=== PATIENT | female | born 1985 | race Caucasian/White ===

== ENCOUNTER 2017-11-03 08:17 | Emergency (ER) | payer SELFPAY ==
[2017-11-03] MEDS ORDERED: ONDANSETRON ODT 4 MG TAB.RAPDIS PO ONE (09:15)
[2017-11-03] MEDS ORDERED: KETOROLAC 60 MG/2 ML VIAL. IM ONE (09:15)
--- NOTE | 2017-11-03 09:24 | RAD ---
CT of the head without contrast, 11/03/2017: History: Headache The ventricles are within normal limits in size. There is no shift of the midline structures. There is no evidence of acute intracranial hemorrhage or mass effect. IMPRESSION: No acute intracranial abnormality is detected. PQRS Compliance Statement: One or more of the following individualized dose reduction techniques were utilized for this examination: 1. Automated exposure control 2. Adjustment of the mA and/or kV according to patient size 3. Use of iterative reconstruction technique
[2017-11-03] MEDS ORDERED: PROM25TA10 PO (09:49)
[2017-11-03] MEDS ORDERED: NAPR-683 PO (09:49)
--- NOTE | 2017-11-03 09:49 | PHYS DOC ---
Past History Past Medical History: Endometriosis, Other Additional Past Medical Histor: PCOS Past Surgical History: Tonsillectomy, Tubal ligation, Other Smoking: Less than 1pk/day Alcohol Use: Occasionally Drug Use: None Adult General Chief Complaint Chief Complaint: headache and neck pain [facility] 32-year-old female patient complaining of throbbing headache in top of her head dislocation 20 since yesterday that getting force today and had an episode of tunnel vision and near syncope. Patient rated her pain 6 /10 and complaining of nausea and photophobia with her pain. Patient denies focal neurodeficit, fever and chills, vomiting, . Patient didn't not take any pain medication at home. Patient states she had episodes of headache like migraine but did not have treatment for CT of head. Review of Systems Review of Systems Constitutional: Denies fever or chills [] Eyes: Denies change in visual acuity, redness, or eye pain [] HENT: Denies nasal congestion or sore throat [] Respiratory: Denies cough or shortness of breath [] Cardiovascular: No additional information not addressed in HPI [] GI: Denies abdominal pain, vomiting, bloody stools or diarrhea and reports nausea[] : Denies dysuria or hematuria [] Musculoskeletal: Denies back pain or joint pain [] Integument: Denies rash or skin lesions [] Neurologic: Reports headache, denies focal weakness or sensory changes [] Endocrine: Denies polyuria or polydipsia [] All other systems were reviewed and found to be within normal limits, except as documented in this note. Current Medications Current Medications Current Medications Medications (Trade) Dose Ordered Sig/Zay Start Time Stop Time Status Last Admin Dose Admin Ketorolac Tromethamine (Toradol) 60 mg 1X ONCE 11/03/17 09:15 11/03/17 09:16 DC 11/03/17 08:57 60 MG Ondansetron HCl (Zofran Odt) 8 mg 1X ONCE 11/03/17 09:15 11/03/17 09:16 DC 11/03/17 08:58 8 MG Allergies Allergies Allergies Coded Allergies Type Severity Reaction Last Updated Verified No Known Drug Allergies 11/03/17 No Physical Exam Physical Exam Constitutional: Well developed, well nourished, mild distress, non-toxic appearance, morbidly obese. [] HENT: Normocephalic, atraumatic, bilateral external ears normal, oropharynx moist, no oral exudates, nose normal. [] Eyes: PERRLA, EOMI, conjunctiva normal, no discharge. [] Neck: Normal range of motion, no tenderness, supple, no stridor. [] Cardiovascular:Heart rate regular rhythm, no murmur [] Lungs & Thorax: Bilateral breath sounds clear to auscultation [] Abdomen: Bowel sounds normal, soft, no tenderness, no masses, no pulsatile masses. [] Skin: Warm, dry, no erythema, no rash. [] Back: No tenderness, no CVA tenderness. [] Extremities: No tenderness, no cyanosis, no clubbing, ROM intact, no edema. [] Neurologic: Alert and oriented X 3, normal motor function, normal sensory function, no focal deficits noted. [] Psychologic: Affect normal, judgement normal, mood normal. [] Current Patient Data Vital Signs Vital Signs Date Time Temp Pulse Resp B/P (MAP) Pulse Ox O2 Delivery O2 Flow Rate FiO2 11/03/17 08:20 97.5 88 18 97 Room Air EKG EKG [] Radiology/Procedures Radiology/Procedures [] [place] [address] IMAGING REPORT Signed PATIENT: SUMIT NG ACCOUNT: [id number] : 1985 LOCATION: ER AGE: 32 SEX: F EXAM STATUS: REG ER ORD. PHYSICIAN: ANGELA KERN MD REASON: headache PROCEDURE: CT HEAD WO CONTRAST CT of the head without contrast, 11/03/2017: History: Headache The ventricles are within normal limits in size. There is no shift of the midline structures. There is no evidence of acute intracranial hemorrhage or mass effect. IMPRESSION: No acute intracranial abnormality is detected. PQRS Compliance Statement: One or more of the following individualized dose reduction techniques were utilized for this examination: 1. Automated exposure control 2. Adjustment of the mA and/or kV according to patient size 3. Use of iterative reconstruction technique DICTATED AND SIGNED BY: MEETA ORNELAS MD DATE: 11/03/17 0920 CC: ANGELA KERN MD; EILEEN YORK ~ Course & Med Decision Making Course & Med Decision Making Pertinent Imaging studies reviewed. (See chart for details) Evaluation of patient in ER showed 32-year-old female patient with complaining of headaches with radiation to make an photophobia and nausea. Patient had unremarkable physical exam. Patient did not have meningeal sign or neuro deficit. CT head was unremarkable. Patient treated with Toradol and Zofran and felt better. Plan discharge patient home with diagnosis of migraine headache. discharge: I've spoken with the patient and/or caregivers. I've explained the patient's condition, diagnosis and treatment plan based on information available to me at this time. I've answered the patient's and/or caregivers questions and addressed any concerns. The patient and/or caregivers have a good understanding the patient's diagnosis, condition and treatment plan as can be expected at this point. Vital signs have been stabilized. The patient's condition is stable for discharge from the emergency department. The patient will pursue further outpatient evaluation with her primary care provider or other designated consulting physician as outlined in the discharge instructions. Patient and/or caregivers are agreeable to this plan of care and follow-up instructions have been explained in detail. The patient and/or caregivers have received these instructions in written format and expressed understanding of these discharge instructions. The patient and her caregivers are aware that if any significant change in condition or worsening of symptoms should prompt him to immediately return to this of the closest emergency department. If an emergent department is not readily available I would encourage him to call 911. [] Dragon Disclaimer Dragon Disclaimer This electronic medical record was generated, in whole or in part, using a voice recognition dictation system. Departure Departure: Impression: Primary Impression: Migraine headache Additional Impression: Morbid obesity Disposition: 01 HOME, SELF-CARE Condition: IMPROVED Referrals: EILEEN YORK (PCP) Patient Instructions: Migraine Headache Additional Instructions: Drink plenty of liquids Follow-up with your primary care physician in 3-5 days Return to ER if not getting better Scripts Promethazine Hcl (PROMETHAZINE HCL) 25 Mg Tablet 1 TAB PO PRN Q6HRS, #20 TAB Prov: ANGELA KERN MD 11/03/17 Naproxen (NAPROSYN) 500 Mg Tablet 1 TAB PO BID, #30 TAB 1 Refill Prov: ANGELA KERN MD 11/03/17 Problem Qualifiers ANGELA KERN MD Nov 03, 2017 09:49
[2017-11-03 09:56] VITALS: BP 140/92
== END 2017-11-03 09:57 | disposition home or self-care (01) ==
LOC: ER 08:17
DX: G43.909 Migraine, unspecified, not intractable, without status migrainosus (principal); E66.01 Morbid (severe) obesity due to excess calories; E28.2 Polycystic ovarian syndrome; F17.200 Nicotine dependence, unspecified, uncomplicated
CPT/HCPCS: 70450; 96372; 99284; J1885; Q0162

== ENCOUNTER 2018-04-17 10:43 | Inpatient (IN) | payer SELFPAY ==
[~2018-04-17] VITALS: Ht 177.8 cm; Wt 197.5 kg
[~2018-04-17 10:43] MED LIST: NAPR-683 PO; PROM25TA10 PO
--- NOTE | 2018-04-17 11:44 | PHYS DOC ---
Past History Past Medical History: Endometriosis, Other Additional Past Medical Histor: PCOS Past Surgical History: Tonsillectomy, Tubal ligation, Other Smoking: Less than 1pk/day Alcohol Use: Occasionally Drug Use: None Adult General Chief Complaint Chief Complaint: CHEST WALL PAIN HPI HPI Patient is a 33 year old female who presents with complaint of left-sided chest pain. Patient states that she awoke with symptoms this morning of pain in her left shoulder. Patient states she developed sudden left sided pressure pain in her chest that radiated up towards her neck and jaw. Patient denies history of similar symptoms. Patient states she had associated dizziness and nausea with symptoms. Patient denies any known cardiac history but states that she does have family history of heart disease in her father. Patient has not taking medications for her symptoms. Patient rates her pain currently as 6 out of 10. Patient states that she has used tobacco in the past but denies any history of regular smoking. Denies vomiting, abdominal pain, or vision changes. Review of Systems Review of Systems Constitutional: Denies fever or chills [] Eyes: Denies change in visual acuity, redness, or eye pain [] HENT: Denies nasal congestion or sore throat [] Respiratory: Denies cough or shortness of breath [] Cardiovascular: Chest pain[] GI: Nausea, denies abdominal pain, vomiting, bloody stools or diarrhea [] : Denies dysuria or hematuria [] Musculoskeletal: Denies back pain or joint pain [] Integument: Denies rash or skin lesions [] Neurologic: Dizziness, denies focal weakness or sensory changes [] All other systems were reviewed and found to be within normal limits, except as documented in this note. Current Medications Current Medications Current Medications Medications (Trade) Dose Ordered Sig/Zay Start Time Stop Time Status Last Admin Dose Admin Aspirin (Children'S Aspirin) 324 mg 1X ONCE 04/17/18 11:45 04/17/18 11:46 UNV Fentanyl Citrate (Fentanyl 2ml Vial) 50 mcg PRN Q15MIN PRN 04/17/18 11:45 04/18/18 11:44 UNV Ondansetron HCl (Zofran) 4 mg 1X ONCE 04/17/18 11:45 04/17/18 11:46 UNV Sodium Chloride 1,000 ml @ 1,000 mls/hr Q1H 04/17/18 11:37 04/17/18 12:36 UNV Allergies Allergies Allergies Coded Allergies Type Severity Reaction Last Updated Verified No Known Drug Allergies 11/03/17 No Physical Exam Physical Exam Constitutional: Alert, afebrile, appears in moderate discomfort. [] HENT: Normocephalic, atraumatic, bilateral external ears normal, oropharynx moist, no oral exudates, nose normal. [] Eyes: PERRLA, EOMI, conjunctiva normal, no discharge. [] Neck: Normal range of motion, no tenderness, supple, no stridor. [] Cardiovascular:Heart rate regular rhythm, no murmur [] Lungs & Thorax: Bilateral breath sounds clear to auscultation [] Abdomen: Bowel sounds normal, soft, no tenderness, no masses, no pulsatile masses. [] Skin: Warm, dry, no erythema, no rash. [] Back: No tenderness, no CVA tenderness. [] Extremities: No tenderness, no cyanosis, no clubbing, ROM intact, no edema. [] Neurologic: Alert and oriented X 3, normal motor function, normal sensory function, no focal deficits noted. [] Current Patient Data Vital Signs Vital Signs Date Time Temp Pulse Resp B/P (MAP) Pulse Ox O2 Delivery O2 Flow Rate FiO2 04/17/18 11:02 97.8 82 26 98 Room Air Lab Results Laboratory Tests Test 04/17/18 11:20 White Blood Count 8.4 x10^3/uL Red Blood Count 4.61 x10^6/uL Hemoglobin 13.0 g/dL Hematocrit 38.8 % Mean Corpuscular Volume 84 fL Mean Corpuscular Hemoglobin 28 pg Mean Corpuscular Hemoglobin Concent 33 g/dL Red Cell Distribution Width 12.8 % Platelet Count 296 x10^3/uL Neutrophils (%) (Auto) 72 % Lymphocytes (%) (Auto) 23 % Monocytes (%) (Auto) 3 % Eosinophils (%) (Auto) 1 % Basophils (%) (Auto) 1 % Neutrophils # (Auto) 6.1 x10^3uL Lymphocytes # (Auto) 2.0 x10^3/uL Monocytes # (Auto) 0.2 x10^3/uL Eosinophils # (Auto) 0.1 x10^3/uL Basophils # (Auto) 0.1 x10^3/uL D-Dimer (Sherri) 0.49 mg/L Sodium Level 137 mmol/L Potassium Level 4.1 mmol/L Chloride Level 103 mmol/L Carbon Dioxide Level 28 mmol/L Anion Gap 6 Blood Urea Nitrogen 9 mg/dL Creatinine 0.7 mg/dL Estimated GFR (Cockcroft-Gault) 97.0 BUN/Creatinine Ratio 13 Glucose Level 116 mg/dL Calcium Level 8.7 mg/dL Magnesium Level 1.9 mg/dL Total Bilirubin 0.3 mg/dL Aspartate Amino Transf (AST/SGOT) 15 U/L Alanine Aminotransferase (ALT/SGPT) 25 U/L Alkaline Phosphatase 67 U/L Creatine Kinase 56 U/L Creatine Kinase MB (Mass) < 0.5 ng/mL Creatine Kinase MB Relative Index 0.9 % Troponin I Quantitative < 0.017 ng/mL [id number]-Type Natriuretic Peptide 157 pg/mL Total Protein 7.5 g/dL Albumin 3.1 g/dL Albumin/Globulin Ratio 0.7 Current Medications Medications (Trade) Dose Ordered Sig/Zay Route PRN Reason Start Time Stop Time Status Last Admin Dose Admin Aspirin (Children'S Aspirin) 324 mg 1X ONCE PO 04/17/18 11:45 04/17/18 11:49 DC 04/17/18 12:03 Fentanyl Citrate (Fentanyl 2ml Vial) 50 mcg PRN Q15MIN PRN IV PAIN GREATER THAN 3/10 04/17/18 11:45 04/18/18 11:44 04/17/18 12:02 Sodium Chloride 1,000 ml @ 1,000 mls/hr Q1H IV 04/17/18 11:45 04/17/18 12:44 04/17/18 12:03 Ondansetron HCl (Zofran) 4 mg 1X ONCE IV 04/17/18 11:45 04/17/18 11:49 DC 04/17/18 12:03 EKG EKG Interpreted by me: Heart rate 75, sinus rhythm, normal axis, nonspecific T-wave inversions in lead aVL and V2, no acute ST elevations or depressions[] Radiology/Procedures Radiology/Procedures [address] [address] IMAGING REPORT Signed PATIENT: SUMIT NG ACCOUNT: [id number] : 1985 LOCATION: ER AGE: 33 SEX: F EXAM STATUS: REG ER ORD. PHYSICIAN: TITUS WARE MD REASON: chest pain PROCEDURE: PORTABLE CHEST 1V PORTABLE CHEST 1V Clinical Indication: chest pain Comparison: Two-view chest March 01, 2016. Findings: Exam is limited due to portable technique. There is inadequate penetration. Apical lordotic positioning. The cardiomediastinal silhouette is normal. No obvious opacity in the lungs. There is no pneumothorax. No obvious pleural effusion is appreciated. Nondiagnostic evaluation of the bones. IMPRESSION: Limited study due to body habitus and portable technique. No obvious opacity in the lungs. Electronically signed by: Zenon Matthews MD (04/17/2018 12:03 PM) [id number] DICTATED AND SIGNED BY: ZENON MATTHEWS MD DATE: 04/17/18 1201 CC: TITUS WARE MD; EILEEN YORK ~ [] Course & Med Decision Making Course & Med Decision Making Pertinent Labs and Imaging studies reviewed. (See chart for details) Patient's troponin level is negative. HEART score is 3. The patient is in low risk category for major acute cardiac event, the patient continues to be in significant discomfort despite treatment with aspirin and fentanyl. Given the nature of patient's symptoms, we will admit the patient for rule out of acute myocardial infarction. I spoke with Dr. Benitez who accepted care of patient in hospital. A consult was placed to Dr. Stephen of cardiology to follow patient in hospital. Dragon Disclaimer Dragon Disclaimer This electronic medical record was generated, in whole or in part, using a voice recognition dictation system. Departure Departure: Impression: Primary Impression: Chest pain Additional Impression: Morbid obesity Disposition: 09 ADMITTED INPATIENT Admitting Physician: Carloz Benitez Condition: STABLE Referrals: EILEEN YORK (PCP) Problem Qualifiers Primary Impression: Chest pain Chest pain type: unspecified Qualified Codes: R07.9 - Chest pain, unspecified TITUS WARE MD Apr 17, 2018 11:44
[2018-04-17] MEDS ORDERED: ONDANSETRON PF 4 MG/2 ML VIAL. IV ONE (11:45)
[2018-04-17] MEDS ORDERED: ASPIRIN 81 MG TAB.CHEW PO ONE (11:45)
[2018-04-17 11:51] LABS: BASO # 0.1 x10^3/uL (0.0-0.2); BASO % 1 % (0-3); EOS # 0.1 x10^3/uL (0.0-0.7); EOS % 1 % (0-3); HEMATOCRIT 38.8 % (36.0-47.0); LYMPH % 23 % (24-48); MEAN CORPUSCULAR HEMOGLOBIN 28 pg (25-35); MEAN CORPUSCULAR HGB CONC 33 g/dL (31-37); MEAN CORPUSCULAR VOLUME 84 fL (79-100); MONO # 0.2 x10^3/uL (0.0-1.1); MONO % 3 % (0-9); NEUT # 6.1 x10^3uL (1.8-7.7); NEUT % 72 % (31-73); PLATELET COUNT 296 x10^3/uL (140-400); RED BLOOD COUNT 4.61 x10^6/uL (3.50-5.40); RED CELL DISTRIBUTION WIDTH 12.8 % (11.5-14.5); WHITE BLOOD COUNT 8.4 x10^3/uL (4.0-11.0)
[2018-04-17] MEDS: IV NORMAL SALINE 1,000ML 1,000 ML IV SCH ×4 (12:02→21:41)
--- NOTE | 2018-04-17 12:07 | RAD ---
PORTABLE CHEST 1V Clinical Indication: chest pain Comparison: Two-view chest March 01, 2016. Findings: Exam is limited due to portable technique. There is inadequate penetration. Apical lordotic positioning. The cardiomediastinal silhouette is normal. No obvious opacity in the lungs. There is no pneumothorax. No obvious pleural effusion is appreciated. Nondiagnostic evaluation of the bones. IMPRESSION: Limited study due to body habitus and portable technique. No obvious opacity in the lungs. Electronically signed by: Zenon Matthews MD (04/17/2018 12:03 PM) [id number]
[2018-04-17 12:19] LABS: ALBUMIN 3.1 g/dL (3.4-5.0); ALBUMIN/GLOBULIN RATIO 0.7 (1.0-1.7); ALK PHOS 67 U/L (46-116); ALT (SGPT) 25 U/L (14-59); ANION GAP 6 (6-14); AST (SGOT) 15 U/L (15-37); BLOOD UREA NITROGEN 9 mg/dL (7-20); BUN/CREATININE RATIO 13 (6-20); CALCIUM 8.7 mg/dL (8.5-10.1); CARBON DIOXIDE 28 mmol/L (21-32); CHLORIDE 103 mmol/L (98-107); CREATININE 0.7 mg/dL (0.6-1.0); GLUCOSE 116 mg/dL (70-99); MAGNESIUM 1.9 mg/dL (1.8-2.4); POTASSIUM 4.1 mmol/L (3.5-5.1); SODIUM 137 mmol/L (136-145); TOTAL BILIRUBIN 0.3 mg/dL (0.2-1.0); TOTAL PROTEIN 7.5 g/dL (6.4-8.2)
[2018-04-17] MEDS ORDERED: ONDANSETRON PF 4 MG/2 ML VIAL. IV PRN (12:45)
[2018-04-17 13:50] LABS: BACTERIA,URINE FEW /HPF (0-FEW); BILIRUBIN,URINE NEG (NEG); CLARITY,URINE CLEAR; COLOR,URINE YELLOW; GLUCOSE,URINE NEG (NEG); NITRITE,URINE NEG (NEG); RBC,URINE OCC /HPF (0-2); SQUAMOUS EPITHELIAL CELL,UR FEW /LPF; UROBILINOGEN,URINE 0.2 mg/dL (0.2 mg/dL)
[2018-04-17 14:10] VITALS: BP 161/85
[2018-04-17] MEDS ORDERED: PREN1TAB PO (15:30)
[2018-04-17] MEDS ORDERED: NORG1TAB6 PO (15:30)
[2018-04-17] MEDS ORDERED: LORA10TA3 PO (15:30)
--- NOTE | 2018-04-17 15:51 | NUR ---
The patient, SUMIT NG, 33 y/o, F admitted by TOMÁS BROWNING MD, was given written information regarding hospital policies, unit procedures and contact persons. Patient admitted to room 117 from the ED and arrived at approx. 1415 via EMS. Patient accompanied by family on admission. Valuables were checked and left in room with patient. Vital signs assessed and patient given a box lunch.
--- NOTE | 2018-04-17 16:40 | PDOC2 ---
CONSULT Date of Admission DATE: 04/17/18 TIME: 16:38 Reason for Consult: cp Problem List Problems Medical Problems: (1) Chest pain Status: Acute (2) Morbid obesity Status: Acute History of Present Illness Ms Guadalupe is a 33 year old female who presents with complaints of chest pain which she woke with this am. She reports left shoulder pain that radiated up her neck into her face and chest tightness. She reports increase with exertion. She reports some associated dyspnea, lightheadedness, diaphoresis and a "foggy feeling" in her head. She does no regular exercise but reports ability to walk one flight of stairs without significant symptoms. She reports edema in her legs intermittently which is worse at the end of the day. She complains of heaviness and pain in her legs when swollen and associated shortness of breath. She reports occasional palpitations that feel like a fluttering in her chest. Past Medical History PCOS, endometriosis, ADD Past Surgical History Right fallopian tube removed. 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 Current Medications Current Medications Aspirin (Children'S Aspirin) 324 mg 1X ONCE PO Last administered on 04/17/18at 12:03; Start 04/17/18 at 11:45; Stop 04/17/18 at 11:49; Status DC Fentanyl Citrate (Fentanyl 2ml Vial) 50 mcg PRN Q15MIN PRN IV PAIN GREATER THAN 3/10 Last administered on 04/17/18at 12:02; Start 04/17/18 at 11:45; Stop at 11:44 Sodium Chloride 1,000 ml @ 1,000 mls/hr Q1H IV Last administered on 04/17/18at 12:03; Start 04/17/18 at 11:45; Stop 04/17/18 at 12:44; Status DC Ondansetron HCl (Zofran) 4 mg 1X ONCE IV Last administered on 04/17/18at 12:03 ; Start 04/17/18 at 11:45; Stop 04/17/18 at 11:49; Status DC Ondansetron HCl (Zofran) 4 mg PRN Q4HRS PRN IV NAUSEA/VOMITING; Start 04/17/18 at 12:45; Stop 04/18/18 at 12:44 Fentanyl Citrate (Fentanyl 2ml Vial) 50 mcg PRN Q2HR PRN IV PAIN; Start at 12:45; Stop 04/18/18 at 12:44 Sodium Chloride 1,000 ml @ 100 mls/hr Q10H IV ; Start 04/17/18 at 12:45; Stop 04/18/18 at 12:44 Active Scripts Active Reported Sprintec (Norgestimate-Ethinyl Estradiol) 1 Each Tablet 1 Tab PO DAILY Vitamins ( Vit W-Ca,Fe,FA(<1 mg)) 1 Each Tablet 1 Each PO DAILY Loratadine 10 Mg Tablet 1 Tab PO DAILY Allergies: Coded Allergies: No Known Drug Allergies (Unverified , 11/03/17) Review of System as per HPI General: Alert, Oriented X3, Cooperative, No acute distress Lungs: Clear to auscultation, Normal air movement Heart: Regular rate, Normal S1, Normal S2, Other (+ murmur 2/6) Abdomen: Normal bowel sounds, Soft, No tenderness, Other (obese) Extremities: No cyanosis, Normal pulses, Other (1+ edema) Neuro: Normal speech, Strength at 5/5 X4 ext Psych/Mental Status: Mental status NL, Mood NL VITALS Vital Signs Date Time Temp Pulse Resp B/P (MAP) Pulse Ox O2 Delivery O2 Flow Rate FiO2 04/17/18 15:53 Room Air 04/17/18 14:10 98.4 85 18 161/85 (110) 95 Labs Laboratory Tests Test 04/17/18 11:20 04/17/18 12:10 04/17/18 15:45 White Blood Count 8.4 x10^3/uL (4.0-11.0) Red Blood Count 4.61 x10^6/uL (3.50-5.40) Hemoglobin 13.0 g/dL (12.0-15.5) Hematocrit 38.8 % (36.0-47.0) Mean Corpuscular Volume 84 fL (79-100) Mean Corpuscular Hemoglobin 28 pg (25-35) Mean Corpuscular Hemoglobin Concent 33 g/dL (31-37) Red Cell Distribution Width 12.8 % (11.5-14.5) Platelet Count 296 x10^3/uL (140-400) Neutrophils (%) (Auto) 72 % (31-73) Lymphocytes (%) (Auto) 23 % (24-48) Monocytes (%) (Auto) 3 % (0-9) Eosinophils (%) (Auto) 1 % (0-3) Basophils (%) (Auto) 1 % (0-3) Neutrophils # (Auto) 6.1 x10^3uL (1.8-7.7) Lymphocytes # (Auto) 2.0 x10^3/uL (1.0-4.8) Monocytes # (Auto) 0.2 x10^3/uL (0.0-1.1) Eosinophils # (Auto) 0.1 x10^3/uL (0.0-0.7) Basophils # (Auto) 0.1 x10^3/uL (0.0-0.2) D-Dimer (Sherri) 0.49 mg/L (0.00-0.50) Sodium Level 137 mmol/L (136-145) Potassium Level 4.1 mmol/L (3.5-5.1) Chloride Level 103 mmol/L (98-107) Carbon Dioxide Level 28 mmol/L (21-32) Anion Gap 6 (6-14) Blood Urea Nitrogen 9 mg/dL (7-20) Creatinine 0.7 mg/dL (0.6-1.0) Estimated GFR (Cockcroft-Gault) 97.0 BUN/Creatinine Ratio 13 (6-20) Glucose Level 116 mg/dL (70-99) Calcium Level 8.7 mg/dL (8.5-10.1) Magnesium Level 1.9 mg/dL (1.8-2.4) Total Bilirubin 0.3 mg/dL (0.2-1.0) Aspartate Amino Transf (AST/SGOT) 15 U/L (15-37) Alanine Aminotransferase (ALT/SGPT) 25 U/L (14-59) Alkaline Phosphatase 67 U/L (46-116) Creatine Kinase 56 U/L (26-192) Creatine Kinase MB (Mass) < 0.5 ng/mL (0.0-3.6) Creatine Kinase MB Relative Index 0.9 % (0-4) Troponin I Quantitative < 0.017 ng/mL (0-0.055) < 0.017 ng/mL (0-0.055) PT-Oxh-H-Type Natriuretic Peptide 157 pg/mL (0-124) Total Protein 7.5 g/dL (6.4-8.2) Albumin 3.1 g/dL (3.4-5.0) Albumin/Globulin Ratio 0.7 (1.0-1.7) Urine Collection Type Unknown Urine Color Yellow Urine Clarity Clear Urine pH 7.5 Urine Specific Sayre 1.015 Urine Protein Neg (NEG-TRACE) Urine Glucose (UA) Neg mg/dL (NEG) Urine Ketones (Stick) Neg mg/dL (NEG) Urine Blood Neg (NEG) Urine Nitrite Neg (NEG) Urine Bilirubin Neg (NEG) Urine Urobilinogen Dipstick 0.2 mg/dL (0.2 mg/dL) Urine Leukocyte Esterase Small (NEG) Urine RBC Occ /HPF (0-2) Urine WBC 5-10 /HPF (0-4) Urine Squamous Epithelial Cells Few /LPF Urine Bacteria Few /HPF (0-FEW) Images EKG - sinus rhythm, non specific st/t abn Assessment/Plan 1. Chest pain - mixed features. CE negative x1. No acute ischemia on EKG. 2. dyspnea on exertion - No overt heart failure. 3. hypertension - reportedly labile 4. unk lipid status 5. palpitations Will start aspirin, low dose BB, check echo. Plan for outpatient MCT for frequent palpitations. If no significant abnormalities, consider outpatient stress testing. CHLOÉ GRIER APRN Apr 17, 2018 16:40
--- NOTE | 2018-04-17 18:11 | NUR ---
Nursing Note: Normal Saline non-administered d/t previous bag from ED still running.
[2018-04-17 19:57] VITALS: BP 138/81
--- NOTE | 2018-04-17 20:50 | NUR ---
spoke with DR. Benitez regarding pt continuing home med loratadine. okay to reorder.
[2018-04-17] MEDS ORDERED: METOPROLOL TART IMMED RELEASE 25 MG TABLET PO SCH (21:00)
[2018-04-17 21:22] VITALS: BP 126/83
[2018-04-17] MEDS: METOPROLOL TART IMMED RELEASE 25 MG TABLET PO SCH (21:44)
[2018-04-17] MEDS ORDERED: CETIRIZINE HCL 10 MG TABLET PO SCH (21:45)
[2018-04-17 23:09] VITALS: BP 148/89
[2018-04-18] MEDS: ACETAMINOPHEN 325 MG TABLET PO PRN ×2 (01:01→08:14)
[2018-04-18 05:12] VITALS: BP 131/83
--- NOTE | 2018-04-18 06:29 | EKG ---
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
[2018-04-18 06:47] LABS: BASO # 0.1 x10^3/uL (0.0-0.2); BASO % 1 % (0-3); EOS # 0.1 x10^3/uL (0.0-0.7); EOS % 1 % (0-3); HEMATOCRIT 34.9 % (36.0-47.0); HEMOGLOBIN 11.7 g/dL (12.0-15.5); LYMPH # 2.9 x10^3/uL (1.0-4.8); LYMPH % 35 % (24-48); MEAN CORPUSCULAR HEMOGLOBIN 28 pg (25-35); MEAN CORPUSCULAR HGB CONC 34 g/dL (31-37); MEAN CORPUSCULAR VOLUME 84 fL (79-100); MONO # 0.3 x10^3/uL (0.0-1.1); MONO % 4 % (0-9); NEUT # 4.9 x10^3uL (1.8-7.7); NEUT % 59 % (31-73); PLATELET COUNT 281 x10^3/uL (140-400); RED BLOOD COUNT 4.14 x10^6/uL (3.50-5.40); RED CELL DISTRIBUTION WIDTH 13.1 % (11.5-14.5); WHITE BLOOD COUNT 8.3 x10^3/uL (4.0-11.0)
[2018-04-18 06:56] LABS: CALCIUM 8.2 mg/dL (8.5-10.1); CREATININE 0.6 mg/dL (0.6-1.0); GFR 115.9; POTASSIUM 4.2 mmol/L (3.5-5.1)
[2018-04-18] MEDS ORDERED: ASPIRIN ENTERIC COATED 81 MG TABLET.DR. PO SCH (08:00)
[2018-04-18] MEDS: METOPROLOL TART IMMED RELEASE 25 MG TABLET PO SCH (08:14)
[2018-04-18] MEDS: IV NORMAL SALINE 1,000ML 1,000 ML IV SCH (08:45)
[2018-04-18 12:15] VITALS: BP 131/82
--- NOTE | 2018-04-18 12:41 | HP ---
ADMIT DATE: 04/18/2018 HISTORY OF PRESENT ILLNESS: The patient is a 33-year-old female patient, who came to the Emergency Room with a complaint of chest pain, which woke her up yesterday morning. She reports left shoulder pain that radiates up to her neck and to her face and chest tightness. She also reports that it has increased with exertion. The pain was associated with dyspnea, lightheadedness, diaphoresis and a foggy feeling in her head. She does no regular exercise, but reports ability to walk 1 flight of stairs without any significant symptoms. She reports also that she has swelling of her legs intermittently, which is worse at the end of the day. She also complained of heaviness and pain in her legs and swollen and reported occasional palpitation that is like fluttering in her chest. She was extensively investigated in the Emergency Room. Her first set of cardiac enzyme was less than 0.017. She was admitted to do 2 more sets of cardiac enzyme and to consult the cardiology team. PAST MEDICAL HISTORY: Significant for polycystic ovary syndrome and endometriosis. She also has attention deficit hyperactivity disorder. PAST SURGICAL HISTORY: Significant for right total salpingectomy for ectopic . She has also tonsillectomy and adenoidectomy. FAMILY HISTORY: Sudden cardiac in her father at age of 50. Multiple family members with various inflammatory disease. Her sister has Sjogren's syndrome. Her mother has COPD. SOCIAL HISTORY: She lives with her common-law , has no children of her own; however, she has 6 children. She does not smoke, drink alcohol or use recreational drugs. 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 REVIEW OF SYSTEMS: The patient denied any blurring of vision, cataract, glaucoma or macular degeneration. Denied any earache, tinnitus or sensorineural deafness. Denied any nosebleeds, stuffy nose or postnasal drip. Denied any sore throat, sore tongue, toothache, hoarseness of voice or difficulty swallowing. Denied any nausea, vomiting, diarrhea or constipation. Denied any hematemesis, melena or hematochezia. Denied any dysuria, frequency or hematuria. She did complain of chest pain, shortness of breath and dizziness, but no vertigo. PHYSICAL EXAMINATION: GENERAL: On arrival to the Emergency Room, she looked well and was clearly in no apparent respiratory distress. There was no pallor, jaundice or cyanosis. No lymphadenopathy, no thyromegaly, no jugular distension. No lower limb edema. VITAL SIGNS: Her heart rate was 84, blood pressure was 158/88, temperature was 97.8, respiratory rate was 22 and oxygen saturation was 99%. HEAD, EYES, EARS, NOSE AND THROAT: Showed normocephalic, atraumatic. NECK: Supple. HEART: Showed normal first and second heart sounds. No gallop, rub or murmur. CHEST: Clear to auscultation. No crepitation or rhonchi. ABDOMEN: Distended, soft, nontender. NEUROLOGIC: She is awake, alert, responding appropriately. All cranial nerves intact. EXTREMITIES: She moves extremities without difficulty. She ambulates without assistance or assistive devices. LABORATORY DATA: On arrival to the Emergency Room, her lab work showed a serum sodium 137, potassium 4.1, chloride 103, bicarbonate 28, anion gap of 6, BUN 9, creatinine 0.7, estimated GFR was 97 mL per minute. Her glucose 116, calcium was 8.7, magnesium was 1.9. Total bilirubin, AST, ALT, alkaline phosphatase were normal. Her total protein was 7.5, albumin 3.1. Her first set of cardiac enzymes showed troponin to be less than 0.017. Her white cell count was 8400, hemoglobin 13, hematocrit 39, MCV 84 and platelet count 296,000 with normal manual differential. Her D-dimer was 0.49. Urinalysis was essentially unremarkable. Her chest x-ray showed that there is inadequate penetration; however, apical lordotic positioning. The cardiomediastinal silhouette is normal. No obvious opacity in the lungs. There is no pneumothorax, no obvious pleural effusion is appreciated, nondiagnostic evaluation of the bones. PLAN: The patient was admitted. We will do 2 more sets of cardiac enzyme. Consult the Cardiology team and decide the further management accordingly. TOMÁS BROWNING MD DR: KOBE/herb JOB#: [id number] / [id number]
[2018-04-18] MEDS ORDERED: KETOROLAC 30 MG/ML VIAL. IV ONE (12:45)
--- NOTE | 2018-04-18 14:10 | CARD ---
MR#: [id number] Date of Study: 04/18/2018 Ordering Physician: CHLOÉ GRIER, Referring Physician: TOMÁS BROWNING Tech: Arleth Boston RDCS APPROVED REPORT EXAM: Two-dimensional and M-mode echocardiogram with Doppler and color Doppler. Other Information Quality : Fair INDICATION Chest Pain RISK FACTORS Obesity 2D DIMENSIONS RVDd3.2 (2.9-3.5cm)Left Atrium(2D)3.8 (1.6-4.0cm) IVSd1.0 (0.7-1.1cm)Aortic Root(2D)2.8 (2.0-3.7cm) LVDd5.7 (3.9-5.9cm)LVOT Diameter2.3 (1.8-2.4cm) PWd1.1 (0.7-1.1cm)LVDs3.9 (2.5-4.0cm) FS (%) 32.2 %SV96.4 ml Aortic Valve AoV Peak Obi.169.0cm/sAoV VTI31.6cm AO Peak GR.11.4mmHgLVOT Peak Obi.125.6cm/s LVOT VTI 24.96cmAO Mean GR.6mmHg CLARE (VMAX)3.45se0TMF (VTI)3.19cm2 Mitral Valve MV E Cdbxdeik95.5cm/sMV DECEL HHGY336xe MV A Nlbjtxps97.1cm/sE/A Ratio1.3 Tricuspid Valve TR P. Ccgzmctf569wv/sRAP DRMZHOFH9dhXi TR Peak Gr.57izNiPNBY60mvLw Pulmonary Vein S1 Ygdrqkza47.5cm/sD2 Qaxhsmhf50.6cm/s LEFT VENTRICLE The left ventricle is normal size. There is normal left ventricular wall thickness. The left ventricu lar systolic function is normal and the ejection fraction is within normal range. The Ejection Fracti on is 55-60%. There is normal LV segmental wall motion. The left ventricular diastolic function and f illing is normal for age. RIGHT VENTRICLE The right ventricle is normal size. The right ventricular systolic function is normal. ATRIA The left atrium size is normal. The right atrium size is normal. The interatrial septum is intact wit h no evidence for an atrial septal defect or patent foramen ovale as noted on 2-D or Doppler imaging. AORTIC VALVE The aortic valve is not well visualized. Doppler and Color Flow revealed no significant aortic regurg itation. There is no significant aortic valvular stenosis. MITRAL VALVE The mitral valve is normal in structure and function. There is no evidence of mitral valve prolapse. There is no mitral valve stenosis. Doppler and Color-flow revealed trace to mild mitral regurgitation . TRICUSPID VALVE The tricuspid valve is normal in structure and function. Doppler and Color Flow revealed mild tricusp id regurgitation. The PA pressure was estimated at 40 mmHg. There is no tricuspid valve stenosis. PULMONIC VALVE The pulmonic valve is not well visualized. Doppler and Color Flow revealed no pulmonic valvular regur gitation. There is no pulmonic valvular stenosis. GREAT VESSELS The aortic root is normal in size. The ascending aorta is normal in size. The IVC is normal in size a nd collapses >50% with inspiration. PERICARDIAL EFFUSION There is no evidence of significant pericardial effusion. Critical Notification Critical Value: No <Conclusion> The left ventricle is normal size. The left ventricular systolic function is normal and the ejection fraction is within normal range. The Ejection Fraction is 55-60%. There is no significant aortic valvular stenosis. Doppler and Color Flow revealed no significant aortic regurgitation. Doppler and Color-flow revealed trace to mild mitral regurgitation. Doppler and Color Flow revealed mild tricuspid regurgitation. The PA pressure was estimated at 40 mmHg. There is no evidence of significant pericardial effusion. Signed by : Gene Sofia MD Electronically Approved : 04/18/2018 14:09:39
--- NOTE | 2018-04-18 14:20 | NUR ---
Pt discharged from hospital, instructions provided to the pt. Iv discontinued. Pt off unit accompanied by family memebers.
--- NOTE | 2018-04-18 15:30 | PDOC ---
SUBJECTIVE: Patient seen and examined She is feeling better today. OBJECTIVE: Problems: Problems Medical Problems: (1) Chest pain Status: Acute (2) Morbid obesity Status: Acute Chest pain. No evidence of acute infarction. Patient is significantly better symptomatically. Echocardiogram shows normal left ventricular size and systolic function. The patient may be discharged on present treatments. We'll contact the patient for follow-up and further testing. Morbid obesity. Patient is hopefully started a diet and exercise program postdischarge. Hypertension. Patient's blood pressures under improved control. Vital Signs: Vital Signs Date Time Temp Pulse Resp B/P (MAP) Pulse Ox O2 Delivery O2 Flow Rate FiO2 04/18/18 12:15 98.4 83 20 131/82 (98) 94 04/18/18 05:12 Room Air I & O Intake and Output 04/18/18 07:00 Intake Total 3067.72 ml Balance 3067.72 ml Intake Oral 960 ml IV Total 1867.72 ml Tube Feeding 240 ml # Voids 5 Labs: Laboratory Tests Test 04/17/18 11:20 04/17/18 12:10 04/17/18 15:45 04/17/18 19:00 White Blood Count 8.4 x10^3/uL (4.0-11.0) Red Blood Count 4.61 x10^6/uL (3.50-5.40) Hemoglobin 13.0 g/dL (12.0-15.5) Hematocrit 38.8 % (36.0-47.0) Mean Corpuscular Volume 84 fL (79-100) Mean Corpuscular Hemoglobin 28 pg (25-35) Mean Corpuscular Hemoglobin Concent 33 g/dL (31-37) Red Cell Distribution Width 12.8 % (11.5-14.5) Platelet Count 296 x10^3/uL (140-400) Neutrophils (%) (Auto) 72 % (31-73) Lymphocytes (%) (Auto) 23 % (24-48) Monocytes (%) (Auto) 3 % (0-9) Eosinophils (%) (Auto) 1 % (0-3) Basophils (%) (Auto) 1 % (0-3) Neutrophils # (Auto) 6.1 x10^3uL (1.8-7.7) Lymphocytes # (Auto) 2.0 x10^3/uL (1.0-4.8) Monocytes # (Auto) 0.2 x10^3/uL (0.0-1.1) Eosinophils # (Auto) 0.1 x10^3/uL (0.0-0.7) Basophils # (Auto) 0.1 x10^3/uL (0.0-0.2) D-Dimer (Sherri) 0.49 mg/L (0.00-0.50) Sodium Level 137 mmol/L (136-145) Potassium Level 4.1 mmol/L (3.5-5.1) Chloride Level 103 mmol/L (98-107) Carbon Dioxide Level 28 mmol/L (21-32) Anion Gap 6 (6-14) Blood Urea Nitrogen 9 mg/dL (7-20) Creatinine 0.7 mg/dL (0.6-1.0) Estimated GFR (Cockcroft-Gault) 97.0 BUN/Creatinine Ratio 13 (6-20) Glucose Level 116 mg/dL (70-99) Calcium Level 8.7 mg/dL (8.5-10.1) Magnesium Level 1.9 mg/dL (1.8-2.4) Total Bilirubin 0.3 mg/dL (0.2-1.0) Aspartate Amino Transf (AST/SGOT) 15 U/L (15-37) Alanine Aminotransferase (ALT/SGPT) 25 U/L (14-59) Alkaline Phosphatase 67 U/L (46-116) Creatine Kinase 56 U/L (26-192) Creatine Kinase MB (Mass) < 0.5 ng/mL (0.0-3.6) Creatine Kinase MB Relative Index 0.9 % (0-4) Troponin I Quantitative < 0.017 ng/mL (0-0.055) < 0.017 ng/mL (0-0.055) < 0.017 ng/mL (0-0.055) GS-Oqb-N-Type Natriuretic Peptide 157 pg/mL (0-124) Total Protein 7.5 g/dL (6.4-8.2) Albumin 3.1 g/dL (3.4-5.0) Albumin/Globulin Ratio 0.7 (1.0-1.7) Urine Collection Type Unknown Urine Color Yellow Urine Clarity Clear Urine pH 7.5 Urine Specific Thor 1.015 Urine Protein Neg (NEG-TRACE) Urine Glucose (UA) Neg mg/dL (NEG) Urine Ketones (Stick) Neg mg/dL (NEG) Urine Blood Neg (NEG) Urine Nitrite Neg (NEG) Urine Bilirubin Neg (NEG) Urine Urobilinogen Dipstick 0.2 mg/dL (0.2 mg/dL) Urine Leukocyte Esterase Small (NEG) Urine RBC Occ /HPF (0-2) Urine WBC 5-10 /HPF (0-4) Urine Squamous Epithelial Cells Few /LPF Urine Bacteria Few /HPF (0-FEW) Maternal Serum HCG Beta Subunit < 1 mIU/mL (0-6) Triglycerides Level 161 mg/dL (0-150) Cholesterol Level 209 mg/dL (0-200) LDL Cholesterol, Calculated 128 mg/dL (0-100) VLDL Cholesterol, Calculated 32 mg/dL (0-40) Non-HDL Cholesterol Calculated 160 mg/dL (0-129) HDL Cholesterol 49 mg/dL (40-60) Cholesterol/HDL Ratio 4.0 Test 04/18/18 06:34 White Blood Count 8.3 x10^3/uL (4.0-11.0) Red Blood Count 4.14 x10^6/uL (3.50-5.40) Hemoglobin 11.7 g/dL (12.0-15.5) Hematocrit 34.9 % (36.0-47.0) Mean Corpuscular Volume 84 fL (79-100) Mean Corpuscular Hemoglobin 28 pg (25-35) Mean Corpuscular Hemoglobin Concent 34 g/dL (31-37) Red Cell Distribution Width 13.1 % (11.5-14.5) Platelet Count 281 x10^3/uL (140-400) Neutrophils (%) (Auto) 59 % (31-73) Lymphocytes (%) (Auto) 35 % (24-48) Monocytes (%) (Auto) 4 % (0-9) Eosinophils (%) (Auto) 1 % (0-3) Basophils (%) (Auto) 1 % (0-3) Neutrophils # (Auto) 4.9 x10^3uL (1.8-7.7) Lymphocytes # (Auto) 2.9 x10^3/uL (1.0-4.8) Monocytes # (Auto) 0.3 x10^3/uL (0.0-1.1) Eosinophils # (Auto) 0.1 x10^3/uL (0.0-0.7) Basophils # (Auto) 0.1 x10^3/uL (0.0-0.2) Sodium Level 139 mmol/L (136-145) Potassium Level 4.2 mmol/L (3.5-5.1) Chloride Level 106 mmol/L (98-107) Carbon Dioxide Level 28 mmol/L (21-32) Anion Gap 5 (6-14) Blood Urea Nitrogen 7 mg/dL (7-20) Creatinine 0.6 mg/dL (0.6-1.0) Estimated GFR (Cockcroft-Gault) 115.9 Glucose Level 102 mg/dL (70-99) Calcium Level 8.2 mg/dL (8.5-10.1) Physical Exam: Chest is clear to auscultation and percussion. CV is regular rate and rhythm. Abdomen soft without masses or tenderness. ASSESSMENT: As above. JONNATHAN FELIZ MD Apr 18, 2018 15:30
--- NOTE | 2018-04-19 20:29 | DS ---
DATE OF DISCHARGE: 04/18/2018 HISTORY OF PRESENT ILLNESS: The patient has a 33-year-old female patient who came with complaint of chest pain and left shoulder and neck pain. She has had 3 sets of cardiac enzymes that were negative. EKG showed sinus rhythm and she has had an echocardiogram done, which showed that her left ventricular system is normal in size. Left ventricular systolic function is normal. The ejection fraction is within normal range. Ejection fraction is 55%-60%. There is no significant aortic valvular stenosis, no significant aortic regurgitation, mild mitral regurgitation, mild tricuspid regurgitation. Pulmonary artery pressure was slightly elevated estimated at 40 mmHg. No evidence of significant pericardial effusion. She was seen in consultation by the collar stitcher and the patient has no evidence of acute infarction and they recommended that she can be discharged and she would be followed as an outpatient. PHYSICAL EXAMINATION: GENERAL: When I saw her on the day of discharge, she was resting slightly propped up in bed, in no apparent respiratory distress. VITAL SIGNS: Her heart rate was 83, blood pressure 131/82, temperature was 98.4, respiratory rate 20, and oxygen saturation was 94%. HEAD, EYES, EARS, NOSE AND THROAT: Showed normocephalic, atraumatic. NECK: Supple. CARDIAC: Normal first and second sounds. No gallop, rub or murmur. CHEST: Clear to auscultation. No crepitation or rhonchi. ABDOMEN: Distended, soft, nontender. NEUROLOGIC: She was awake, alert, responding appropriately. Cranial nerves intact. She moves extremities without difficulty. She ambulates without assistance or assistive devices. LABORATORY DATA: Showed a serum sodium 139, potassium 4.2, chloride 106, bicarbonate 28, anion gap of 5, BUN 7, creatinine 0.6, estimated GFR was 115 mL per minute. Her glucose was 102, calcium was 8.2. Her serum triglycerides 161, total cholesterol 209, LDL was 128, VLDL was 32, HDL cholesterol of 49 and the ratio was 4. She had 3 sets of cardiac enzymes that were negative. Her white cell count was 8300, hemoglobin 11.7, hematocrit 34.9, MCV 84, and platelet count 281,000. Her D-dimer was 0.49. Her chest x-ray showed no pneumothorax, no obvious pleural effusion appreciated. DISCHARGE MEDICATIONS: She was discharged home, to continue loratadine 10 mg at bedtime, Sprintec 1 tablet daily, and as well as metoprolol, low-dose beta-eusebia, 12.5 mg twice a day. FINAL DISCHARGE DIAGNOSES: Chest pain. Cardiac enzymes are negative. No acute ischemic changes on EKG and echocardiogram was normal. Hypertension, labile. Hyperlipidemia, morbid obesity, polycystic ovary syndrome, and endometriosis. TOMÁS BROWNING MD DR: KOBE/herb JOB#: [id number] / [id number]
--- NOTE | 2018-04-20 15:03 | RAD ---
MR#: [id number] Date of Study: 04/17/2018 Ordering Physician: CHLOÉ GRIER, Referring Physician: TOMÁS BROWNING, Tech: Dolores Taylor BS, RTR, RDMS, RVT APPROVED REPORT Patient Location: IN-PATIENT Laterality:Bilateral Indications Dizziness and Vertigo Grayscale images the bilateral common carotid, internal and external carotid vessels are limited due to technically suboptimal images. Grossly, there is no obvious obstructive plaque noted. Spectral wav eforms and color Doppler in the internal carotid and external carotid vessels are within normal limit s. Vertebral velocities are antegrade. Risk Factors Hypertension: Hyperlipidemia Diabetes Family History: CAD, Smoking previous smoker Doppler Spectral Velocity Analysis Right Left pCCA 152/26 cm/spCCA 130/29 cm/s mCCA 138/24 cm/smCCA 132/26 cm/s dCCA 114/35 cm/sdCCA 115/32 cm/s ECA 117/ cm/sECA 87/ cm/s pICA 91/28 cm/spICA 81/33 cm/s Shayla 72/31 cm/smICA 96/33 cm/s dICA 87/43 cm/sdICA 96/39 cm/s Vert. 56/24 cm/sVert. 85/30 cm/s ICA/CCA 0.60ICA/CCA 0.74 Critical Notification Critical Value: No <Conclusion> No focal high-grade stenosis is identified. Signed by : Norberto Cedeno, Electronically Approved : 04/20/2018 15:01:39
== END 2018-04-18 14:43 | disposition home or self-care (01) | DRG 313 ==
LOC: ER 10:43 → 1 SOUTH 13:25
PROVIDERS: ADMIT Internal Medicine; ATTEND Internal Medicine
DX: R07.89 Other chest pain (principal); Z68.44 Body mass index [BMI] 60.0-69.9, adult; E28.2 Polycystic ovarian syndrome; E66.01 Morbid (severe) obesity due to excess calories; E78.5 Hyperlipidemia, unspecified; F90.9 Attention-deficit hyperactivity disorder, unspecified type; N80.9 Endometriosis, unspecified; I10 Essential (primary) hypertension; Z82.41 Family history of sudden cardiac death; Z82.49 Family history of ischemic heart disease and other diseases of the circulatory system; Z82.5 Family history of asthma and other chronic lower respiratory diseases; Z90.49 Acquired absence of other specified parts of digestive tract; Z90.721 Acquired absence of ovaries, unilateral
CPT/HCPCS: 36415; 71045; 80048; 80053; 80061; 81001; 82553; 83735; 83880; 84484; 84702; 85025; 85379; 87086; 93005; 93306; 93880; 96361; 96374; J1885; J2405; J3010; 99285-25; J7030

== ENCOUNTER → 2019-03-02 | Outpatient (CLI) | payer OTHER ==
[~2019-03-02] MED LIST changes: +LORA10TA3 PO; +NORG1TAB6 PO; +PREN1TAB PO
--- NOTE | 2019-03-02 11:00 | RAD ---
5 views of the cervical spine 03/02/2019 INDICATION: Neck and back pain COMPARISON STUDY: None Discussion: Exam limited by nonvisualization of the inferior cervical spine and cervicothoracic junction on lateral views. Reversal of cervical lordosis is seen which is likely positional. Visualized cervical spine demonstrates no evidence of fracture or acute alignment abnormality. No evidence of prevertebral soft tissue is identified. Vertebral body heights appear preserved. The atlantoaxial articulation appears to remain intact. No acute soft tissue changes are seen. Oblique views demonstrate no gross neural foraminal bony narrowing. IMPRESSION: Somewhat limited study without evidence of acute osseous abnormality Electronically signed by: Gil Gutierrez MD (03/02/2019 10:57 AM) [id number]
[2019-03-02 15:12] LABS: ALBUMIN 3.4 g/dL (3.4-5.0); ALBUMIN/GLOBULIN RATIO 0.8 (1.0-1.7); CALCIUM 9.1 mg/dL (8.5-10.1); CREATININE 0.7 mg/dL (0.6-1.0); POTASSIUM 4.6 mmol/L (3.5-5.1); TOTAL BILIRUBIN 0.6 mg/dL (0.2-1.0); TOTAL PROTEIN 7.6 g/dL (6.4-8.2)
[2019-03-02 15:23] LABS: BASO # 0.1 x10^3/uL (0.0-0.2); BASO % 1 % (0-3); EOS % 1 % (0-3); HEMATOCRIT 41.3 % (36.0-47.0); HEMOGLOBIN 13.7 g/dL (12.0-15.5); LYMPH # 2.4 x10^3/uL (1.0-4.8); LYMPH % 27 % (24-48); MEAN CORPUSCULAR HEMOGLOBIN 28 pg (25-35); MEAN CORPUSCULAR HGB CONC 33 g/dL (31-37); MEAN CORPUSCULAR VOLUME 84 fL (79-100); MONO # 0.4 x10^3/uL (0.0-1.1); MONO % 4 % (0-9); NEUT % 68 % (31-73); PLATELET COUNT 301 x10^3/uL (140-400); RED BLOOD COUNT 4.92 x10^6/uL (3.50-5.40); RED CELL DISTRIBUTION WIDTH 13.4 % (11.5-14.5); WHITE BLOOD COUNT 8.8 x10^3/uL (4.0-11.0)
[2019-03-02 16:16] LABS: SEDIMENTATION RATE 27 (0-25)
--- NOTE | 2019-03-02 17:08 | RAD ---
Exam: Thoracic spine Date: 03/02/2019 12:00 AM CLINICAL HISTORY: Neck and back pain COMPARISON: None available. FINDINGS: AP and lateral/swimmers views of the thoracic spine submitted. There is severe superimposed artifact at the cervical thoracic junction on the lateral view per techniques. Mild disc height loss within several midthoracic intervertebral levels. Vertebral body heights are preserved. No evidence for acute fracture Negative malalignment. Negative focal paraspinal line deviation/hematoma. IMPRESSION: No evidence for acute fracture or subluxation. Electronically signed by: Kelton Prieto MD (03/02/2019 5:05 PM) [facility]
[2019-03-03 20:29] LABS: FREE T4 0.89 ng/dL (0.76-1.46); THYROID STIM HORMONE (TSH) 1.809 uIU/mL (0.358-3.740)
== END | disposition home or self-care (01) ==
LOC: DXRAD 10:34
PROVIDERS: ATTEND Physician Assistant
DX: M54.6 Pain in thoracic spine (principal); M54.2 Cervicalgia; E28.2 Polycystic ovarian syndrome; R29.890 Loss of height; G56.92 Unspecified mononeuropathy of left upper limb; R51 Headache
CPT/HCPCS: 36415; 72050; 72072; 80053; 84439; 84443; 85025; 85651

== ENCOUNTER → 2019-04-05 | Outpatient (CLI) | payer OTHER ==
--- NOTE | 2019-04-05 17:41 | RAD ---
Left lower extremity venous doppler ultrasound History: Left leg pain and swelling, redness Comparison: None Findings: Multiple grayscale, color, and duplex spectral analysis sonographic images were acquired of the left lower extremity veins to evaluate for the presence of DVT. Exam is reportedly limited due to patient's body habitus, unable to obtain compression images. There is normal color flow and phasicity from the left common femoral to popliteal veins. There is color flow of segments of left calf veins. No thrombus is demonstrate. Impression: 1. No thrombus is demonstrated from the left common femoral to popliteal veins, limited exam due to patient's body habitus. Electronically signed by: Meet Ledesma MD (04/05/2019 5:38 PM) [id number]
--- NOTE | 2019-04-05 20:34 | RAD ---
Exam: Left calcaneus 2 views INDICATION: Heel pain TECHNIQUE: Frontal and lateral views of the left calcaneus Comparisons: None FINDINGS: Bone mineralization and development are normal. There are no acute or healed fractures. Mild enthesopathic changes noted at the Achilles insertion. Soft tissues are unremarkable. IMPRESSION: No acute osseous abnormality. Electronically signed by: Gulilermo Arroyo MD (04/05/2019 8:31 PM) [facility]
== END | disposition home or self-care (01) ==
LOC: US 16:53
PROVIDERS: ATTEND Registered Nurse
DX: M77.32 Calcaneal spur, left foot (principal)
CPT/HCPCS: 73650; 93971

== ENCOUNTER → 2019-04-05 | Outpatient (CLI) | payer OTHER ==
[2019-04-05 18:45] LABS: BASO # 0.1 x10^3/uL (0.0-0.2); BASO % 1 % (0-3); EOS # 0.1 x10^3/uL (0.0-0.7); EOS % 1 % (0-3); HEMATOCRIT 38.7 % (36.0-47.0); HEMOGLOBIN 12.8 g/dL (12.0-15.5); LYMPH # 2.6 x10^3/uL (1.0-4.8); LYMPH % 28 % (24-48); MEAN CORPUSCULAR HEMOGLOBIN 28 pg (25-35); MEAN CORPUSCULAR HGB CONC 33 g/dL (31-37); MEAN CORPUSCULAR VOLUME 85 fL (79-100); MONO # 0.6 x10^3/uL (0.0-1.1); MONO % 7 % (0-9); NEUT # 5.9 x10^3uL (1.8-7.7); NEUT % 64 % (31-73); PLATELET COUNT 289 x10^3/uL (140-400); RED BLOOD COUNT 4.55 x10^6/uL (3.50-5.40); RED CELL DISTRIBUTION WIDTH 13.5 % (11.5-14.5); WHITE BLOOD COUNT 9.3 x10^3/uL (4.0-11.0)
== END | disposition home or self-care (01) ==
LOC: LAB 18:26
PROVIDERS: ATTEND Registered Nurse
DX: L03.116 Cellulitis of left lower limb (principal); M79.669 Pain in unspecified lower leg
CPT/HCPCS: 36415; 85025; 85379; 85651

== ENCOUNTER 2019-04-10 13:37 | Emergency (ER) | payer OTHER ==
[~2019-04-10] VITALS: Ht 175.3 cm; Wt 199.6 kg
[2019-04-10] MEDS ORDERED: ceFAZolin IM 1 GM VIAL IM ONE (14:00)
[2019-04-10] MEDS ORDERED: CEPH500T PO (14:03)
--- NOTE | 2019-04-10 14:03 | PHYS DOC ---
Past History Past Medical History: Endometriosis, Hypertension, Other Additional Past Medical Histor: PCOS Past Surgical History: Tonsillectomy, Tubal ligation, Other Smoking: Less than 1pk/day Alcohol Use: Occasionally Drug Use: None Adult General Chief Complaint Chief Complaint: LOWER EXTREMITY SWELLING [facility] Patient is a 34-year-old female who presents with some redness on the right inner lower leg area. She had a similar situation on the left leg last week was started on clindamycin in the left leg improved however now she's got redness on the right side. She had venous Dopplers last week which did not show any evidence of DVT. She denies any fever chills or sweats however she states she's felt some body aches and feels rundown generally.[] Review of Systems Review of Systems Constitutional: Denies fever or chills [] Eyes: Denies change in visual acuity, redness, or eye pain [] HENT: Denies nasal congestion or sore throat [] Respiratory: Denies cough or shortness of breath [] Cardiovascular: No additional information not addressed in HPI [] GI: Denies abdominal pain, nausea, vomiting, bloody stools or diarrhea [] : Denies dysuria or hematuria [] Musculoskeletal: Denies back pain or joint pain [] Integument: Redness right lower extremity[] Neurologic: Denies headache, focal weakness or sensory changes [] Endocrine: Denies polyuria or polydipsia [] All other systems were reviewed and found to be within normal limits, except as documented in this note. Allergies Allergies Allergies Coded Allergies Type Severity Reaction Last Updated Verified No Known Drug Allergies 11/03/17 No Physical Exam Physical Exam Constitutional: Well developed, well nourished, no acute distress, non-toxic appearance. [] HENT: Normocephalic, atraumatic, bilateral external ears normal, oropharynx moist, no oral exudates, nose normal. [] Eyes: PERRLA, EOMI, conjunctiva normal, no discharge. [] Neck: Normal range of motion, no tenderness, supple, no stridor. [] Cardiovascular:Heart rate regular rhythm, no murmur [] Lungs & Thorax: Bilateral breath sounds clear to auscultation [] Abdomen: Bowel sounds normal, soft, no tenderness, no masses, no pulsatile masses. [] Skin: She appears to have some superficial thrombophlebitis on the right inner lower leg no evidence of abscess this area courses through a tattoo[] Back: No tenderness, no CVA tenderness. [] Extremities: Lower extremities are nonswollen negative Homans. [] Neurologic: Alert and oriented X 3, normal motor function, normal sensory function, no focal deficits noted. [] Psychologic: Affect normal, judgement normal, mood normal. [] Current Patient Data Vital Signs Vital Signs Date Time Temp Pulse Resp B/P (MAP) Pulse Ox O2 Delivery O2 Flow Rate FiO2 04/10/19 13:40 98.7 99 20 98 Room Air EKG EKG [] Radiology/Procedures Radiology/Procedures [] Course & Med Decision Making Course & Med Decision Making Pertinent Labs and Imaging studies reviewed. (See chart for details) [] Dragon Disclaimer Dragon Disclaimer This electronic medical record was generated, in whole or in part, using a voice recognition dictation system. Departure Departure: Impression: Primary Impression: Cellulitis of right lower extremity Disposition: HOME, SELF-CARE Condition: STABLE Referrals: EILEEN YORK (PCP) Patient Instructions: Cellulitis, Phlebitis Additional Instructions: You can stop the clindamycin. Start the new antibiotic that you were prescribed today. Return to the emergency department with any new or concerning symptoms Scripts Cephalexin (CEPHALEXIN) 500 Mg Tablet 1 TAB PO TID for cellulitis, #30 TAB Prov: JUAN RAMON ELLIS DO 04/10/19 JUAN RAMON ELLIS DO Apr 10, 2019 14:03
[2019-04-10 14:13] VITALS: BP 153/86
== END 2019-04-10 14:20 | disposition home or self-care (01) ==
LOC: ER 13:37
DX: L03.115 Cellulitis of right lower limb (principal); I10 Essential (primary) hypertension; F17.200 Nicotine dependence, unspecified, uncomplicated
CPT/HCPCS: 96372; 99283; J0690

== ENCOUNTER → 2019-04-14 | Outpatient (CLI) | payer OTHER ==
[2019-04-10 14:13] VITALS: BP 153/86
[~2019-04-14] MED LIST changes: +CEPH500T PO
--- NOTE | 2019-04-14 13:49 | RAD ---
EXAM: Bilateral knees, 3 views. HISTORY: Pain. COMPARISON: None. FINDINGS: 3 views of both knees are obtained. There is no fracture, dislocation or subluxation. There is no joint effusion. IMPRESSION: No acute osseous finding. Electronically signed by: Faustina Miller MD (04/14/2019 1:46 PM) [place] [id number]
--- NOTE | 2019-04-14 13:49 | RAD ---
EXAM: Bilateral knees, 3 views. HISTORY: Pain. COMPARISON: None. FINDINGS: 3 views of both knees are obtained. There is no fracture, dislocation or subluxation. There is no joint effusion. IMPRESSION: No acute osseous finding. Electronically signed by: Faustina Miller MD (04/14/2019 1:46 PM) [place] [id number]
== END | disposition home or self-care (01) ==
LOC: RAD 12:29
PROVIDERS: ATTEND Orthopaedic Surgery
DX: M25.561 Pain in right knee (principal); M25.562 Pain in left knee
CPT/HCPCS: 73560; 73565

== ENCOUNTER → 2019-07-29 | Outpatient (CLI) | payer OTHER ==
[2019-07-29 13:16] LABS: CALCIUM 8.7 mg/dL (8.5-10.1); CREATININE 0.6 mg/dL (0.6-1.0); GFR 115.1; MAGNESIUM 1.8 mg/dL (1.8-2.4); POTASSIUM 4.3 mmol/L (3.5-5.1)
[2019-08-02 19:07] LABS: ANA INTERP Negative (.)
== END | disposition home or self-care (01) ==
LOC: PMG 11:11
PROVIDERS: ATTEND Registered Nurse
DX: R52 Pain, unspecified (principal)
CPT/HCPCS: 36415; 80048; 83735; 85651; 86038

== ENCOUNTER → 2019-12-09 | Outpatient (CLI) | payer OTHER ==
--- NOTE | 2019-12-09 11:59 | RAD ---
Right knee 2 views with bilateral AP standing knee views: Reason for examination: Right knee pain. Comparison is made to previous study dated 04/14/2019. No acute fracture or dislocation is seen. The bone density is normal. No abnormal periosteal reaction is seen. There is however moderate to severe narrowing at the medial joint compartment of the knees bilaterally which appears to be worsened when compared to previous exam. There is also significant widening of the lateral joint compartment of the left knee also appears to be more pronounced than on previous exam. There also appears to be some increased soft tissue density in the suprapatellar region which may reflect joint effusion. IMPRESSION: Moderate to severe narrowing of the medial joint compartments of the knees bilaterally which has progressed when compared to previous exam. Widening of the lateral joint compartment of the left knee which is more pronounced than on previous exam and may reflect ligamentous injury. Probable right joint effusion. Recommend clinical correlation and further evaluation with bilateral knee MRI examinations may be indicated. Electronically signed by: Alcira Mario MD (12/09/2019 11:56 AM) [id number]
== END | disposition home or self-care (01) ==
LOC: DXRAD 11:21
PROVIDERS: ATTEND Physician Assistant
DX: M17.11 Unilateral primary osteoarthritis, right knee (principal)
CPT/HCPCS: 73560; 73565

== ENCOUNTER → 2020-02-11 | Outpatient (CLI) | payer OTHER ==
[2020-02-11 09:47] LABS: BASO % 1 % (0-3); EOS # 0.1 x10^3/uL (0.0-0.7); EOS % 1 % (0-3); HEMATOCRIT 38.8 % (36.0-47.0); LYMPH # 2.3 x10^3/uL (1.0-4.8); LYMPH % 30 % (24-48); MEAN CORPUSCULAR HEMOGLOBIN 28 pg (25-35); MEAN CORPUSCULAR HGB CONC 34 g/dL (31-37); MEAN CORPUSCULAR VOLUME 84 fL (79-100); MONO # 0.4 x10^3/uL (0.0-1.1); MONO % 5 % (0-9); NEUT # 4.8 x10^3uL (1.8-7.7); NEUT % 63 % (31-73); PLATELET COUNT 258 x10^3/uL (140-400); WHITE BLOOD COUNT 7.6 x10^3/uL (4.0-11.0)
[2020-02-11 09:57] LABS: PREG TEST PT QUAL NEGATIVE (NEG)
[2020-02-11 10:09] LABS: ALBUMIN 3.4 g/dL (3.4-5.0); ALBUMIN/GLOBULIN RATIO 0.8 (1.0-1.7); CREATININE 0.7 mg/dL (0.6-1.0); GFR 96.4; POTASSIUM 4.1 mmol/L (3.5-5.1); TOTAL BILIRUBIN 0.3 mg/dL (0.2-1.0); TOTAL PROTEIN 7.8 g/dL (6.4-8.2)
[2020-02-11 20:54] LABS: THYROID STIM HORMONE (TSH) 5.043 uIU/mL (0.358-3.740)
[2020-02-11 22:08] LABS: RHEUMATOID FACTOR <10.0 IU/mL (0.0-13.9)
== END | disposition home or self-care (01) ==
LOC: PMG 08:09
PROVIDERS: ATTEND Physician Assistant Medical
DX: E28.2 Polycystic ovarian syndrome (principal); R53.83 Other fatigue; M25.50 Pain in unspecified joint; R19.7 Diarrhea, unspecified
CPT/HCPCS: 36415; 80053; 83516; 83525; 84439; 84443; 84703; 85025; 86038; 86140; 86431

== ENCOUNTER → 2020-04-21 | Outpatient (CLI) | payer OTHER | END | disposition home or self-care (01) | LOC: LAB 09:24 | PROVIDERS: ATTEND Internal Medicine Pulmonary Disease | DX: J45.909 Unspecified asthma, uncomplicated (principal); Z20.828 Contact with and (suspected) exposure to other viral communicable diseases | CPT/HCPCS: U0003-CS ==

== ENCOUNTER → 2020-04-25 | Outpatient (CLI) | payer OTHER, BC ==
[~2020-04-25] MED LIST changes: +HYDR-3165 PO; +ONDA4TAB12 PO
--- NOTE | 2020-04-25 11:31 | RAD ---
EXAM: CHEST 2 VIEWS. HISTORY: Cough. COMPARISON: 04/17/2018. FINDINGS: Frontal and lateral views of the chest are obtained. Linear opacities in the left midlung are stable chronically and likely reflect scarring. There are no confluent infiltrates. There is no pneumothorax or pleural effusion. The heart is not enlarged. IMPRESSION: 1. No confluent infiltrates. Electronically signed by: Giuliana Bautista MD (04/25/2020 11:28 AM) [id number]
== END | disposition home or self-care (01) ==
LOC: RAD 10:57
PROVIDERS: ATTEND Physician Assistant Medical
DX: R07.89 Other chest pain (principal)
CPT/HCPCS: 71046

== ENCOUNTER 2020-04-27 10:39 | Emergency (ER) | payer BC, OTHER ==
[~2020-04-27] VITALS: Ht 177.8 cm; Wt 200.0 kg
[~2020-04-27 10:39] MED LIST changes: -HYDR-3165 PO; -ONDA4TAB12 PO
[2020-04-27] MEDS ORDERED: IV NORMAL SALINE 1,000ML 1,000 ML IV ONE (11:15)
[2020-04-27] MEDS ORDERED: ONDANSETRON PF 4 MG/2 ML VIAL. IVP ONE (11:30)
[2020-04-27] MEDS ORDERED: KETOROLAC 15 MG/ML VIAL. IVP ONE (11:45)
[2020-04-27 11:51] LABS: CALCIUM 8.6 mg/dL (8.5-10.1); CREATININE 0.8 mg/dL (0.6-1.0); GFR 82.1; POTASSIUM 4.2 mmol/L (3.5-5.1)
[2020-04-27 11:56] LABS: ALBUMIN 3.2 g/dL (3.4-5.0); ALBUMIN/GLOBULIN RATIO 0.7 (1.0-1.7); MAGNESIUM 1.7 mg/dL (1.8-2.4); TOTAL BILIRUBIN 0.3 mg/dL (0.2-1.0); TOTAL PROTEIN 7.6 g/dL (6.4-8.2)
--- NOTE | 2020-04-27 11:57 | PHYS DOC ---
Past History Past Medical History: Endometriosis, Hypertension, Other Additional Past Medical Histor: PCOS Past Surgical History: Tonsillectomy, Tubal ligation, Other Smoking: Less than 1pk/day Alcohol Use: Occasionally Drug Use: None General Adult EDM: Chief Complaint: ABDOMINAL PAIN HPI: HPI: Patient is a 35 morbidly obese F presenting to the ED with abdominal pain as well as nausea and vomiting. Patient states that pain started this morning upon awakening. Patient describes pain as deep and located in the right lower quadrant with pain radiating to right upper quadrant, right groin, and right flank. Patient states the abdominal pain was rated at an 8 out of 10 this morning and has since dissipated to 6 out of 10 without any intervention. Upon awakening this morning patient states she felt extremely nauseous and vomited 2- 3 times. Vomit was initially clear but towards the end of episode was green/yellow. Patient started menstrual period 3 days ago. Patient had a history of ectopic for which the right uterine tube was removed. Patient also has PCOS for which she started spironolactone yesterday prescribed by her PCP. Review of Systems: Review of Systems: Constitutional: Denies fever or chills Eyes: Denies redness or eye pain HENT: Denies nasal congestion or sore throat Respiratory: Denies cough or shortness of breath Cardiovascular: Denies chest pain or palpitations GI: Endorses abdominal pain nausea vomiting and diarrhea : Denies dysuria or hematuria Musculoskeletal: Denies back pain or joint pain Integument: Denies rash or skin lesions Neurologic: Denies headache, focal weakness or sensory changes Complete systems were reviewed and found to be within normal limits, except as documented in this note. Current Medications: Current Meds: Current Medications Medications (Trade) Dose Ordered Sig/Zay Start Time Stop Time Status Last Admin Dose Admin Ketorolac Tromethamine (Toradol 15mg Vial) 15 mg 1X ONCE 04/27/20 11:45 04/27/20 11:46 Ondansetron HCl (Zofran) 4 mg 1X ONCE 04/27/20 11:30 04/27/20 11:31 DC Sodium Chloride 1,000 ml @ 1,000 mls/hr 1X ONCE 04/27/20 11:15 04/27/20 12:14 04/27/20 11:23 1,000 MLS/HR Allergies: Allergies: Allergies Coded Allergies Type Severity Reaction Last Updated Verified No Known Drug Allergies 11/03/17 No Physical Exam: PE: Constitutional: Well developed, well nourished, morbidly obese, no acute distress, non-toxic appearance HENT: Normocephalic, atraumatic Eyes: PERRL, EOMI, conjunctiva normal, no discharge Neck: Normal range of motion, no tenderness, supple Lungs & Thorax: Equal chest rise bilaterally observed, patient in no respiratory distress Abdomen: Soft, no tenderness to deep palpation in all 4 quadrants, no rebound tenderness upon withdrawal Skin: Warm, dry, no erythema, no rash Back: No tenderness, no CVA tenderness Extremities: No tenderness, ROM intact, no edema Neurologic: Alert and oriented X 3, normal motor function, normal sensory function, no focal deficits noted Psychologic: Affect normal, judgment normal Radiology/Procedures: Radiology/Procedures: EXAM: 1. RIGHT RENAL ULTRASOUND. 2. PELVIC ULTRASOUND. HISTORY: Right flank pain. Right lower quadrant and pelvic pain. Polycystic ovarian syndrome. COMPARISON: None. FINDINGS: Ultrasound of the right kidney, bladder and retroperitoneum was performed. Visualization is very limited by habitus. The right kidney is not well seen, but measures 10.4 cm. Cortical thickness and echogenicity are grossly preserved. There is no hydronephrosis. The left kidney was not imaged. Images of the bladder reveal no gross abnormality. Prevoid bladder volume is 210 mL. The abdominal aorta and inferior vena cava are grossly patent and normal in caliber. Sonographic evaluation of the pelvis was performed transabdominally and transvaginally. The uterus is anteverted and measures 8.1 x 3.6 x 3.6 cm. The endometrial stripe measures 7 mm. No masses are identified. There is no significant free fluid. The ovaries could not be visualized currently secondary to habitus. No adnexal mass or other abnormality is appreciated. IMPRESSION: 1. Limited visualization of the right kidney. No hydronephrosis. 2. Neither ovary could be visualized. No adnexal mass suggestive of a torsed ovary is identified. Electronically signed by: Giuliana Bautista MD (04/27/2020 12:42 PM) [id number] Course & Med Decision Making: Course & Med Decision Making Pertinent Labs and Imaging studies reviewed. (See chart for details) Dragon Disclaimer: Dragon Disclaimer: This electronic medical record was generated, in whole or in part, using a voice recognition dictation system. Departure Departure: Impression: Primary Impression: Abdominal pain Qualified Codes: R10.31 - Right lower quadrant pain Disposition: 01 HOME/RESIDENCE PRIOR TO ADM Condition: STABLE Referrals: MAURICIO YOUSSEF (PCP) Patient Instructions: Abdominal Pain (Nonspecific) Scripts Hydrocodone Bit/Acetaminophen (NORCO 5-325 TABLET) 1 Each Tablet 0.5-1 TAB PO Q6HRS PRN for PAIN, #10 TAB Prov: TASHA LARIOS DO 04/27/20 Ondansetron (ONDANSETRON ODT) 4 Mg Tab.rapdis 1 TAB PO PRN Q6-8HRS PRN for NAUSEA, #16 TAB Prov: TASHA LARIOS DO 04/27/20 Justification of Admission: Justification of Admission: Justification of Admission Dx: N/A TASHA LARIOS DO Apr 27, 2020 11:57
[2020-04-27 12:18] LABS: BILIRUBIN,URINE NEG (NEG); CLARITY,URINE HAZY; COLOR,URINE AMBER; GLUCOSE,URINE NEG (NEG)
[2020-04-27 12:19] LABS: NITRITE,URINE NEG (NEG); UROBILINOGEN,URINE 0.2 mg/dL (0.2 mg/dL)
[2020-04-27 12:20] LABS: BACTERIA,URINE FEW /HPF (0-FEW); RBC,URINE >40 /HPF (0-2); WBC,URINE 0 /HPF (0-4)
[2020-04-27 12:32] LABS: BASO # 0.1 x10^3/uL (0.0-0.2); BASO % 1 % (0-3); EOS # 0.1 x10^3/uL (0.0-0.7); EOS % 1 % (0-3); HEMATOCRIT 38.2 % (36.0-47.0); HEMOGLOBIN 12.7 g/dL (12.0-15.5); LYMPH # 1.4 x10^3/uL (1.0-4.8); LYMPH % 20 % (24-48); MEAN CORPUSCULAR HEMOGLOBIN 28 pg (25-35); MEAN CORPUSCULAR HGB CONC 33 g/dL (31-37); MEAN CORPUSCULAR VOLUME 85 fL (79-100); MONO # 0.3 x10^3/uL (0.0-1.1); MONO % 4 % (0-9); NEUT # 5.4 x10^3uL (1.8-7.7); NEUT % 74 % (31-73); PLATELET COUNT 278 x10^3/uL (140-400); RED CELL DISTRIBUTION WIDTH 13.1 % (11.5-14.5); WHITE BLOOD COUNT 7.3 x10^3/uL (4.0-11.0)
--- NOTE | 2020-04-27 12:45 | RAD ---
EXAM: 1. RIGHT RENAL ULTRASOUND. 2. PELVIC ULTRASOUND. HISTORY: Right flank pain. Right lower quadrant and pelvic pain. Polycystic ovarian syndrome. COMPARISON: None. FINDINGS: Ultrasound of the right kidney, bladder and retroperitoneum was performed. Visualization is very limited by habitus. The right kidney is not well seen, but measures 10.4 cm. Cortical thickness and echogenicity are grossly preserved. There is no hydronephrosis. The left kidney was not imaged. Images of the bladder reveal no gross abnormality. Prevoid bladder volume is 210 mL. The abdominal aorta and inferior vena cava are grossly patent and normal in caliber. Sonographic evaluation of the pelvis was performed transabdominally and transvaginally. The uterus is anteverted and measures 8.1 x 3.6 x 3.6 cm. The endometrial stripe measures 7 mm. No masses are identified. There is no significant free fluid. The ovaries could not be visualized currently secondary to habitus. No adnexal mass or other abnormality is appreciated. IMPRESSION: 1. Limited visualization of the right kidney. No hydronephrosis. 2. Neither ovary could be visualized. No adnexal mass suggestive of a torsed ovary is identified. Electronically signed by: Giuliana Bautista MD (04/27/2020 12:42 PM) [id number]
[2020-04-27 13:00] VITALS: BP 155/77
[2020-04-27] MEDS ORDERED: ONDA4TAB12 PO (13:05)
[2020-04-27] MEDS ORDERED: HYDR-3165 PO (13:05)
== END 2020-04-27 13:15 | disposition home or self-care (01) ==
LOC: ER 10:39
DX: R10.31 Right lower quadrant pain (principal); R11.2 Nausea with vomiting, unspecified; I10 Essential (primary) hypertension; E28.2 Polycystic ovarian syndrome; F17.200 Nicotine dependence, unspecified, uncomplicated; Z98.51 Tubal ligation status
CPT/HCPCS: 36415; 76775; 76830; 76856; 80053; 81001; 81025; 83690; 83735; 85025; 96361; 96374; 96375; 99285; J1885; J2405; J7030

== ENCOUNTER → 2020-12-07 | Outpatient (CLI) | payer BC ==
[~2020-12-07] MED LIST changes: +HYDR-3165 PO; +ONDA4TAB12 PO
[2020-12-07 10:43] LABS: BASO # 0.1 x10^3/uL (0.0-0.2); BASO % 1 % (0-3); EOS # 0.1 x10^3/uL (0.0-0.7); EOS % 2 % (0-3); HEMATOCRIT 39.3 % (36.0-47.0); HEMOGLOBIN 12.7 g/dL (12.0-15.5); LYMPH # 2.3 x10^3/uL (1.0-4.8); LYMPH % 28 % (24-48); MEAN CORPUSCULAR HEMOGLOBIN 28 pg (25-35); MEAN CORPUSCULAR HGB CONC 32 g/dL (31-37); MEAN CORPUSCULAR VOLUME 86 fL (79-100); MONO # 0.4 x10^3/uL (0.0-1.1); MONO % 5 % (0-9); NEUT # 5.5 x10^3uL (1.8-7.7); NEUT % 66 % (31-73); PLATELET COUNT 278 x10^3/uL (140-400); RED CELL DISTRIBUTION WIDTH 13.7 % (11.5-14.5); WHITE BLOOD COUNT 8.4 x10^3/uL (4.0-11.0)
[2020-12-07 13:50] LABS: SEDIMENTATION RATE 27 (0-25)
== END ==
LOC: LAB 09:29
PROVIDERS: ATTEND Physician Assistant Medical
DX: R06.00 Dyspnea, unspecified (principal)
CPT/HCPCS: 85025; 85651; 86140

== ENCOUNTER 2020-12-20 12:59 | Emergency (ER) | payer BC, OTHER ==
[~2020-12-20] VITALS: Ht 177.8 cm; Wt 218.0 kg
[2020-12-20 14:04] VITALS: BP 176/128
--- NOTE | 2020-12-20 14:22 | RAD ---
XR CHEST 2V History: Reason: sob / Spl. Instructions: / History: Comparison: April 25, 2020 Findings: No consolidation or pleural effusion. Normal heart size. No pneumothorax. Linear left midlung opacity , likely atelectasis or scarring. Impression: 1. No acute cardiopulmonary process. Electronically signed by: Issa Marshall DO (12/20/2020 2:20 PM) [id number]
--- NOTE | 2020-12-20 14:34 | PHYS DOC ---
Past History Past Medical History: Other Additional Past Medical Histor: no formal diagnosis but on medications for asthma, COPD, CHF Past Surgical History: Tonsillectomy Smoking: Less than 1pk/day Alcohol Use: Rarely Drug Use: None Adult General Chief Complaint Chief Complaint: LOWER EXTREMITY SWELLING [facility] Patient is a 35-year-old female who presents to the emergency room complaining of leg swelling. Patient has had leg swelling and intermittent issues with fluid overload for the last couple of years. She has had a cardiac and pulmo nary evaluation which have not found a cause for her symptoms. Patient states that bilateral legs have been swelling and she was started on Lasix a week ago. She states that her right leg has gone down but her left leg has not. Her primary care doctor sent her here to rule out a DVT in her leg. She does have some shortness of breath which is baseline. She denies any increase in shortness of breath. She does not use compression stockings. Review of Systems Review of Systems Complete ROS is negative unless otherwise documented in [facility] Allergies Allergies Allergies Coded Allergies Type Severity Reaction Last Updated Verified No Known Drug Allergies 11/03/17 No Physical Exam Physical Exam General: Awake, alert, NAD. Well Nourished, well hydrated. Cooperative HEENT: Atraumatic, EOMI, PERRL, airway patent, moist oral mucosa Neck: Supple, trachea midline Respiratory: CTA bilaterally, normal effort, no wheezing/crackles CV: RRR, no murmur, cap refill <2, 2+ pitting edema right lower extremity, 4+ pitting edema left lower extremity, 2+ DP pulses bilaterally GI: Soft, nondistended, nontender, no masses MSK: No obvious deformities Skin: Warm, dry, intact Neuro: A&O x3, speech NL, sensory and motor grossly intact, no focal deficits Psych: Normal affect, normal mood, not suicidal or homicidal Current Patient Data Vital Signs Vital Signs Date Time Temp Pulse Resp B/P (MAP) Pulse Ox O2 Delivery O2 Flow Rate FiO2 12/20/20 14:04 98.2 135 26 176/128 (144) 95 Room Air EKG EKG [] Radiology/Procedures Radiology/Procedures [] Heart Score C/O Chest Pain: N/A Risk Factors: Risk Factors: DM, Current or recent (<one month) smoker, HTN, HLP, family history of CAD, obesity. Risk Scores: Risk Factors: DM, Current or recent (<one month) smoker, HTN, HLP, family history of CAD, obesity. Course & Med Decision Making Course & Med Decision Making Pertinent Labs and Imaging studies reviewed. (See chart for details) Patient is a 35-year-old female who presents to the emergency room complaining of bilateral leg swelling that is worse in her left leg. Primary care sent her here to rule out a DVT in her left leg. Ultrasound was done. Due to patient's body habitus all calf deep veins were not visualized but overall venous system appears patent. I have discussed the results with the patient including the suboptimal testing. At this time will defer any further treatment to her primary care physician. I have recommended that she keeps her legs elevated. Patient's test results and vitals while in the ED were fully reviewed and discussed with the patient. Patient is stable and at this time does not need admission to the hospital. We have discussed strict return precautions and the importance of following up with their Primary Care Physician. Patient stated understanding and was given an opportunity to ask any questions. Patient is in agreement with plan. Dragon Disclaimer Dragon Disclaimer This electronic medical record was generated, in whole or in part, using a voice recognition dictation system. Departure Departure: Impression: Primary Impression: Peripheral edema Disposition: HOME / SELF CARE / HOMELESS Condition: STABLE Referrals: MAURICIO YOUSSEF (PCP) Patient Instructions: Peripheral Edema JOSE MAYNARD MD Dec 20, 2020 14:34
--- NOTE | 2020-12-20 14:49 | RAD ---
US DPLX VENOUS EXTREMITY LOWER LT History: Reason: swelling / Spl. Instructions: / History: Comparison: None. Discussion: Multiple longitudinal and transverse high resolution real-time images of the venous system of left lo wer extremity were obtained with color and Doppler sampling. Patent left common femoral, deep femoral, superficial femoral and popliteal veins. Calf veins not wel l seen due to patient body habitus. No definite deep vein thrombosis. Impression: 1. Degraded evaluation. No definite deep vein thrombosis within the left lower extremity. Electronically signed by: Issa Marshall DO (12/20/2020 2:47 PM) [id number]
--- NOTE | 2020-12-20 17:45 | EKG ---
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
== END 2020-12-20 15:19 | disposition home or self-care (01) ==
LOC: ER 12:59
DX: R60.0 Localized edema (principal); F17.210 Nicotine dependence, cigarettes, uncomplicated
CPT/HCPCS: 71046; 93005; 93971; 99284

== ENCOUNTER → 2021-04-11 | Outpatient (CLI) | payer OTHER ==
[2021-04-11 15:12] LABS: ALBUMIN 3.1 g/dL (3.4-5.0); ALBUMIN/GLOBULIN RATIO 0.7 (1.0-1.7); CALCIUM 8.9 mg/dL (8.5-10.1); CREATININE 0.7 mg/dL (0.6-1.0); GFR 95.2; POTASSIUM 3.9 mmol/L (3.5-5.1); TOTAL BILIRUBIN 0.2 mg/dL (0.2-1.0); TOTAL PROTEIN 7.6 g/dL (6.4-8.2)
== END ==
LOC: LAB 14:10
PROVIDERS: ATTEND Internal Medicine Cardiovascular Disease
DX: R06.00 Dyspnea, unspecified (principal)
CPT/HCPCS: 36415; 80053; 83880

== ENCOUNTER → 2021-08-15 | Outpatient (CLI) | payer OTHER ==
[2021-08-15 13:56] LABS: ALBUMIN 3.3 g/dL (3.4-5.0); ALBUMIN/GLOBULIN RATIO 0.7 (1.0-1.7); CREATININE 0.8 mg/dL (0.6-1.0); GFR 81.6; POTASSIUM 4.3 mmol/L (3.5-5.1); TOTAL BILIRUBIN 0.3 mg/dL (0.2-1.0); TOTAL PROTEIN 8.2 g/dL (6.4-8.2)
[2021-08-16 05:08] LABS: HEMOGLOBIN A1C 6.3 % (4.8-5.6)
[2021-08-16 18:35] LABS: THYROID STIM HORMONE (TSH) 2.866 uIU/mL (0.358-3.740)
== END ==
LOC: LAB 12:38
PROVIDERS: ATTEND Internal Medicine Endocrinology, Diabetes & Metabolism
DX: R73.03 Prediabetes (principal); E78.5 Hyperlipidemia, unspecified; I10 Essential (primary) hypertension; E66.01 Morbid (severe) obesity due to excess calories
CPT/HCPCS: 36415; 80053; 80061; 83036; 84443

== ENCOUNTER → 2021-12-12 | Outpatient (CLI) | payer OTHER ==
[2021-12-13 20:10] LABS: ANA INTERP Negative (.)
[2021-12-14 07:13] LABS: ALDOLASE 4.6 U/L (3.3-10.3)
== END ==
LOC: LAB 09:44
PROVIDERS: ATTEND Internal Medicine Critical Care Medicine
DX: R06.00 Dyspnea, unspecified (principal); R00.0 Tachycardia, unspecified; E66.01 Morbid (severe) obesity due to excess calories
CPT/HCPCS: 36415; 82085; 82550; 86038

== ENCOUNTER → 2021-12-12 | Outpatient (CLI) | payer OTHER ==
[2021-12-12 12:05] LABS: BASO % 1 % (0-3); EOS # 0.1 x10^3/uL (0.0-0.7); EOS % 1 % (0-3); HEMATOCRIT 38.7 % (36.0-47.0); HEMOGLOBIN 12.6 g/dL (12.0-15.5); LYMPH # 2.5 x10^3/uL (1.0-4.8); LYMPH % 27 % (24-48); MEAN CORPUSCULAR HEMOGLOBIN 28 pg (25-35); MEAN CORPUSCULAR HGB CONC 33 g/dL (31-37); MEAN CORPUSCULAR VOLUME 85 fL (79-100); MONO # 0.4 x10^3/uL (0.0-1.1); MONO % 4 % (0-9); NEUT # 6.5 x10^3uL (1.8-7.7); NEUT % 68 % (31-73); PLATELET COUNT 304 x10^3/uL (140-400); RED BLOOD COUNT 4.57 x10^6/uL (3.50-5.40); RED CELL DISTRIBUTION WIDTH 13.7 % (11.5-14.5); WHITE BLOOD COUNT 9.5 x10^3/uL (4.0-11.0)
[2021-12-12 12:41] LABS: ALBUMIN/GLOBULIN RATIO 0.7 (1.0-1.7); CALCIUM 8.9 mg/dL (8.5-10.1); CREATININE 0.7 mg/dL (0.6-1.0); GFR 95.2; POTASSIUM 4.3 mmol/L (3.5-5.1); TOTAL BILIRUBIN 0.2 mg/dL (0.2-1.0); TOTAL PROTEIN 7.3 g/dL (6.4-8.2)
[2021-12-12 19:41] LABS: FREE T4 0.97 ng/dL (0.76-1.46); THYROID STIM HORMONE (TSH) 4.09 uIU/mL (0.358-3.740)
[2021-12-13 00:07] LABS: HEMOGLOBIN A1C 6.2 % (4.8-5.6)
== END ==
LOC: LAB 09:51
PROVIDERS: ATTEND Surgery
DX: I10 Essential (primary) hypertension (principal); E28.2 Polycystic ovarian syndrome; M19.90 Unspecified osteoarthritis, unspecified site; Z79.899 Other long term (current) drug therapy
CPT/HCPCS: 36415; 80053; 82306; 82607; 82746; 83036; 83540; 83550; 84439; 84443; 85025

== ENCOUNTER → 2022-01-17 | Outpatient (CLI) | payer OTHER ==
[2022-01-17 10:35] LABS: BASO # 0.1 x10^3/uL (0.0-0.2); BASO % 1 % (0-3); EOS # 0.1 x10^3/uL (0.0-0.7); EOS % 1 % (0-3); HEMATOCRIT 38.3 % (36.0-47.0); HEMOGLOBIN 12.5 g/dL (12.0-15.5); LYMPH # 2.5 x10^3/uL (1.0-4.8); LYMPH % 33 % (24-48); MEAN CORPUSCULAR HEMOGLOBIN 28 pg (25-35); MEAN CORPUSCULAR HGB CONC 33 g/dL (31-37); MEAN CORPUSCULAR VOLUME 84 fL (79-100); MONO # 0.4 x10^3/uL (0.0-1.1); MONO % 5 % (0-9); NEUT # 4.4 x10^3uL (1.8-7.7); NEUT % 60 % (31-73); PLATELET COUNT 308 x10^3/uL (140-400); RED BLOOD COUNT 4.54 x10^6/uL (3.50-5.40); RED CELL DISTRIBUTION WIDTH 13.8 % (11.5-14.5); WHITE BLOOD COUNT 7.4 x10^3/uL (4.0-11.0)
[2022-01-17 11:03] LABS: ALBUMIN/GLOBULIN RATIO 0.7 (1.0-1.7); CREATININE 0.8 mg/dL (0.6-1.0); GFR 81.6; POTASSIUM 3.6 mmol/L (3.5-5.1); TOTAL BILIRUBIN 0.4 mg/dL (0.2-1.0); TOTAL PROTEIN 7.5 g/dL (6.4-8.2)
[2022-01-18 00:08] LABS: HEMOGLOBIN A1C 6.1 % (4.8-5.6)
== END ==
LOC: LAB 09:45
PROVIDERS: ATTEND Surgery
DX: Z01.812 Encounter for preprocedural laboratory examination (principal); E66.01 Morbid (severe) obesity due to excess calories
CPT/HCPCS: 36415; 80053; 82306; 82607; 83036; 85025

== ENCOUNTER → 2022-01-17 | Outpatient (CLI) | payer OTHER ==
[~2022-01-17] MED LIST changes: +IOHEXOL 350 MG/ML 100 ML VIAL. ONE
[2022-01-17] MEDS: IOHEXOL 350 MG/ML 100 ML VIAL. IV ONE (09:13)
--- NOTE | 2022-01-17 12:02 | RAD ---
Study: CT CHEST WITH CONTRAST - PULMONARY ANGIOGRAM History: Asthmatic bronchitis, preop gastric sleeve Comparison: None Technique: Helical CT of the chest performed after the administration of 100 mL Omnipaque 350 intrav enous contrast and timed for angiographic evaluation of the pulmonary arteries per PE protocol. Coron al and sagittal 3D MIP reformations were obtained. One or more of the following individualized dose reduction techniques were utilized for this examinat ion: 1. Automated exposure control 2. Adjustment of the mA and/or kV according to patient size 3. Use of iterative reconstruction technique. Findings: The exam is nondiagnostic for angiographic evaluation of the pulmonary arteries or the aorta due to t echnical difficulties with IV access and the pressure injector automatically shutting off despite mul tiple attempts and trying both arms. Thyroid and thoracic inlet: Unremarkable. Heart/Systemic Vasculature: The heart is normal in size. No pericardial effusion. The thoracic aorta is normal in caliber. Mediastinum: There is no mediastinal or hilar lymphadenopathy. Lungs: Mild atelectasis in the lungs. Scattered air trapping. No pleural effusion or pneumothorax. Neck/Axilla/Body Wall: No axillary lymphadenopathy. Upper Abdomen: Unremarkable. Bones: No acute osseous abnormality. There is degenerative disc disease with a posterior disc osteoph yte complex at T9-T10 causing mild canal narrowing. Miscellaneous: None. IMPRESSION: 1. Nondiagnostic exam for angiographic evaluation of the pulmonary arteries or aorta due to technica l difficulties as above. 2. Scattered air trapping in the lungs. Electronically signed by: Bailey Lamas MD (01/17/2022 12:00 PM) [facility]
== END ==
LOC: CT 08:34
PROVIDERS: ATTEND Physician Assistant Medical
DX: J98.11 Atelectasis (principal); M51.34 Other intervertebral disc degeneration, thoracic region; M25.78 Osteophyte, vertebrae; J45.909 Unspecified asthma, uncomplicated
CPT/HCPCS: 71275; Q9967